=== PATIENT | male | born 1995 | race Caucasian/White ===

== ENCOUNTER → 2018-11-10 | Outpatient (CLI) | payer OTHER ==
[~2018-11-10] MED LIST: GADOBUTROL 7.5 MMOL/7.5 ML VIAL INT ART ONE; IOHEXOL 300 MG/ML 50 ML VIAL. INT ART ONE; LIDOCAINE 1% Multi-Dose 20 ML VIAL. ID ONE
--- NOTE | 2018-11-10 16:43 | KCIC ---
MRI arthrogram of the right shoulder HISTORY: Right shoulder pain, dislocation. TECHNIQUE: Routine 4 plane sequences were obtained after intra-articular contrast injection. FINDINGS: Acromioclavicular joint is intact. No evidence of rotator cuff tear. Mild motion degradation. No evidence of labral tear or labral detachment. Signal in the superior labrum on the T1-weighted images is thought to be artifactual. Articular cartilage is intact. Biceps tendon is intact. No evidence of acute fracture or bone destruction. No evidence of Hill-Sachs fracture deformity. IMPRESSION: No evidence of labral tear or other internal derangement. Electronically signed by: Efrain Mariee MD (11/10/2018 4:40 PM) [id number]
--- NOTE | 2018-11-10 16:56 | KCIC ---
PROCEDURE: Right shoulder injection using fluoroscopic guidance, prior to MR. HISTORY: Shoulder pain. TECHNIQUE: The procedure was explained to the patient as were potential risks, including among others infection, bleeding or allergic reaction. All questions were answered. Informed written and verbal consent was obtained. The shoulder was prepped and draped in the usual sterile manner. Following administration of local anesthetic, a 22-gauge needle was advanced into the anterior shoulder. Following negative aspiration, 12 cc of a solution of 5cc Omnipaque-300 contrast, 5 cc 1% lidocaine, 10 cc normal saline, and 0.1 cc gadolinium was injected without difficulty. The needle was removed. There was good hemostasis at the injection site. The patient left in stable condition without immediate complication. A single spot image is obtained. FLUOROSCOPY TIME:?32 seconds Electronically signed by: Efrain Mariee MD (11/10/2018 4:53 PM) [id number]
== END | disposition home or self-care (01) ==
LOC: KCIC 13:32
PROVIDERS: ATTEND Physician Assistant Surgical
DX: S43.004A Unspecified dislocation of right shoulder joint, initial encounter (principal); X58.XXXA Exposure to other specified factors, initial encounter; Y93.89 Activity, other specified; Y92.89 Other specified places as the place of occurrence of the external cause; Y99.8 Other external cause status
CPT/HCPCS: 23350; 73040; 73222; A9585; Q9967